=== PATIENT | female | born 1965 | race Caucasian/White ===

== ENCOUNTER 2016-09-23 12:15 | Inpatient (IN) ==
[2016-09-23] MEDS ORDERED: SALINE LOCK IV FLUID XX ONE (13:21)
[2016-09-23] MEDS ORDERED: ZOFRAN IV PRN (13:21)
--- NOTE | 2016-09-23 14:09 | EKG Report ---
Test Performed on : 09/23/2016 1:51:20 PM Test Reason : CP Blood Pressure : / mmHG Vent. Rate : 076 BPM Atrial Rate : 076 BPM P-R Int : 160 ms QRS Dur : 092 ms QT Int : 372 ms P-R-T Axes : 056 013 024 degrees QTc Int : 418 ms Normal sinus rhythm. Nonspecific ST and T wave abnormality III Normal ECG No previous ECGs available Confirmed by Juanito Rocha DO ([id number]) on 09/25/2016 6:02:58 PM
[2016-09-23] MEDS: LOVENOX SUBQ SCH (15:10)
[2016-09-23] MEDS: SOLU-MEDROL IV SCH ×2 (15:23→21:11)
[2016-09-23] MEDS: ROCEPHIN 1 GM/NS 50 ML IV SCH (15:23)
[2016-09-23 15:35] LABS: URINE CULTURE NEEDED? NO; URINE MICRO REVIEW NEEDED? NO; URINE SOURCE CLEAN CATCH
[2016-09-23 15:39] LABS: BILIRUBIN URINE NEGATIVE (NEGATIVE); BLOOD URINE NEGATIVE (NEGATIVE); COLOR YELLOW; GLUCOSE URINE NEGATIVE (NEGATIVE); LEUKOCYTES URINE NEGATIVE (NEGATIVE); NITRITE URINE NEGATIVE (NEGATIVE); PROTEIN URINE NEGATIVE (NEGATIVE); SP GRAVITY URINE 1.008; TURBIDITY URINE CLEAR (CLEAR); UROBILINOGEN URINE NORMAL (NORMAL)
[2016-09-23] MEDS: DUONEB (A & A) INH SCH ×3 (15:40→23:40)
[2016-09-23 15:41] LABS: UR EPITHELIAL CELLS <10 /HPF (<10); URINE BACTERIA NEGATIVE /HPF; URINE RBC <10 /HPF (<10); URINE WBC <10 /HPF (<10)
[2016-09-23] MEDS: ZITHROMAX 500 MG/NS 250 ML IV SCH (16:34)
[2016-09-23 16:53] LABS: MANUAL DIFF NEEDED? NO
[2016-09-23 17:03] LABS: ALLEN TEST YES; BE -3.1 mmoll (-3.0-3.0); BLOOD TYPE ARTERIAL; DRAW SITE L RADIAL; METHB 1.3 % (0.0-1.5); O2(CT) 19.3 mL/dL (15.0-23.0); PCO2(98.6) 35 mmHg (35-45); PO2(98.6) 77 mmHg (60-100); SAMPLE BLOOD; THB 14.6 g/dL (11.5-17.4); pH(98.6) 7.39 (7.35-7.45)
[2016-09-23] MEDS: ROBITUSSIN-DM PO SCH ×2 (17:13→21:12)
[2016-09-23 17:19] LABS: BASO% 0.5 % (0.0-0.8); EOS# 0.05 X1000 (0.0-0.7); EOS% 0.5 % (0.0-10.0); HEMATOCRIT 43.7 % (37.0-47.0); HEMOGLOBIN 14.3 g/dL (12.0-16.0); IMM GRAN# 0.18 X1000 (0.0-0.04); IMM GRAN% 1.8 % (0.0-0.5); LYMPH% 22.2 % (20.5-51.1); MCHC 32.7 g/dL (33-37); MCV 94.6 FL (81-99); MONO# 0.33 X1000 (0.11-0.59); MONO% 3.3 % (1.7-9.3); MPV 11.8 FL (7.4-10.4); NEUT% 71.7 % (42.2-75.2); PLT 294 X1000 (130-400); RBC 4.62 XMIL (4.2-5.4)
[2016-09-23 17:20] LABS: AGAP 16; ALBUMIN 4.5 g/dL (3.5-5.0); ALKALINE PHOSPHATASE 72 U/L (32-104); BUN 16 mg/dL (8-22); CALCIUM 9.4 mg/dL (8.8-10.2); CHLORIDE 95 mmol/L (98-107); COSMO 272; GOT 18 U/L (10-30); GPT 30 U/L (10-36); POTASSIUM 4.7 mmol/L (3.5-5.1); SODIUM 135 mmol/L (136-145); TCO2 24 mmol/L (25-35); TOTAL BILIRUBIN 0.22 mg/dL (0.20-1.00); TOTAL PROTEIN 7.2 g/dL (6.3-8.3)
[2016-09-23] MEDS: NORCO-7.5 PO PRN (23:55)
[2016-09-24] MEDS: DUONEB (A & A) INH SCH ×5 (03:24→19:27)
[2016-09-24] MEDS: ROBITUSSIN-DM PO SCH ×5 (03:37→21:24)
[2016-09-24] MEDS: SOLU-MEDROL IV SCH ×3 (05:30→21:24)
[2016-09-24] MEDS: PROTONIX PO SCH (06:23)
[2016-09-24] MEDS: LEXAPRO PO SCH (08:35)
[2016-09-24] MEDS: MOBIC PO SCH (08:36)
[2016-09-24] MEDS ORDERED: AMLODIPINE PO SCH (09:00)
[2016-09-24] MEDS ORDERED: VALSARTAN PO SCH (09:00)
--- NOTE | 2016-09-24 09:14 | PROGRESS NOTE ---
DATE: 09/24/2016 SUBJECTIVE: Patient still has a deep nonproductive cough, slight improvement. She did not sleep well overnight. OBJECTIVE: Vital Signs: Afebrile, pulse 91, respirations 18, blood pressure 146/76. CV: Tachycardia, regular rhythm. Lungs: Coarse breath sounds with mild expiratory wheezes bilaterally. Extremities: No calf tenderness, cords, or edema. Labs: Chest x-ray was not done last evening. We will repeat the order. Somehow, it was not carried over in the computer. White count 9.8, hemoglobin 14.3, platelets 294,000. D-dimer 0.19. ABG is normal on room air. CMP unremarkable. Cardiac enzymes, total CK, and troponin are all normal. Urinalysis negative. ASSESSMENT: 1. Acute bronchitis. 2. exacerbation. 3. Hypertension. PLAN: Continue to follow blood cultures. Continue IV antibiotics in the form of Rocephin and Zithromax. Continue IV steroids. Continue Kristie Leonard to help with pulmonary toilet. GI prophylaxis with Protonix and DVT prophylaxis with Lovenox. We will check chest x-ray as stated and follow the patient clinically. Resume Symbicort. Resume Exforge, she is on at home for the blood pressure.
--- NOTE | 2016-09-24 09:29 | Diag Imaging Result Document ---
PROCEDURE NAME: CHEST-2 VIEWS - 09/24/2016 TWO VIEWS OF THE CHEST: FINDINGS: There is some atelectasis or fibrosis in the lingula. Otherwise, the lungs are clear and the heart and pulmonary vascularity are within normal limits. IMPRESSION: Minimal lingular atelectasis.
[2016-09-24] MEDS: DIOVAN PO SCH (09:52)
[2016-09-24] MEDS: NORVASC PO SCH (09:52)
[2016-09-24] MEDS: NORCO-7.5 PO PRN ×2 (09:53→21:29)
[2016-09-24] MEDS: ROCEPHIN 1 GM/NS 50 ML IV SCH (14:15)
[2016-09-24] MEDS: LOVENOX SUBQ SCH (14:15)
--- NOTE | 2016-09-24 14:40 | HISTORY AND PHYSICAL ---
CHIEF COMPLAINT: Cough severe with chest congestion and pain in her left chest area. HISTORY OF PRESENT ILLNESS: The patient is a 51-year-old, white female, followed in my medical practice who presents with about a 5-week history of prominent coughing nonproductive. She had taken outpatient treatment with Omnicef and albuterol MDI and Cheratussin AC cough medication and then came back in the office about a week ago and was re-treated then with Augmentin, prednisone taper and albuterol. The patient has failed to show significant improvement. Comes in complaining of persistent severe deep dry cough barking in nature, chest congestion, some pain prominent in the left chest area with nausea and no vomiting. MEDICATIONS: Prior to admission Mobic 15 mg p.o. daily, Vina 7.5 mg q.6 hours p.r.n. pain, Symbicort 160 two puffs b.i.d., albuterol MDI 2 puffs q.4 hours, CAC cough med p.r.n., Augmentin 875 mg b.i.d., Exforge 5/320, 1 p.o. daily. ALLERGIES: Levaquin. PAST MEDICAL HISTORY: 1. Hypertension. 2. RAD. 3. OA. 4. History of hypersomnolence. PAST SURGICAL HISTORY: 1. Hysterectomy July 2000. 2. RSO secondary to a cyst on her ovary 2003. 3. Breast reduction in 1997. 4. C-spine surgery 2011. 5. Left knee arthroscopy December 2014. FAMILY HISTORY: Notable for hypertension in her father. Great aunt with stomach cancer. Stroke in her great grandfather. Alcoholism in her father. No diabetes or MIs in the family. SOCIAL HISTORY: The patient lives in [place]. She is , has 1 child. Works at a day [employer]. Has never been a smoker. Does not drink alcohol. REVIEW OF SYSTEMS: Negative except as above. PHYSICAL EXAMINATION: VITAL SIGNS: Blood pressure 158/90, pulse 68, temperature 98.4 degrees. Mildly obese white female, with increased work of breathing and prominent deep barking dry cough very prominent. SKIN: No rashes. HEENT: NC/AT, ALONZO, EOMI. Sclerae clear. TMs normal. OP mild redness. No exudate. Tongue in the midline. NECK: No LA, TMG, JVD, bruits. CV: RRR without murmur. LUNGS: Coarse breath sounds bilaterally with mild expiratory wheezes bilaterally. Ill-appearing. BACK: Nontender. ABDOMEN: Soft, nontender, no masses or organomegaly. BREASTS/PELVIC/RECTAL: Deferred. EXTREMITIES: No calf tenderness, cords or edema. Peripheral pulses 2+ over 4 bilaterally. NEUROLOGIC: Cranial nerves 2-12 are intact. ASSESSMENT: 1. Reactive airway disease exacerbation. 2. Bronchitis. 3. Hypertension. 4. OA. 5. Chest pain, atypical. PLAN: At this time patient desires admission to the hospital. She is adamant. We will admit, check blood cultures x2, CBC, CMP, cardiac enzymes, troponin. Check EKG. Check D-dimer. Check chest x-ray. Start antibiotics in the form of Zithromax and Rocephin due to her allergy to Levaquin. Start her on IV Solu-Medrol. Give her DuoNeb regularly for nebulizer. Jahitusyung DM for pulmonary toilet. Prophylaxis for DVT with Lovenox. Continue her Exforge for her blood pressure and will follow the patient closely in the hospital. We will also check ABG.
[2016-09-24] MEDS: ZITHROMAX 500 MG/NS 250 ML IV SCH (15:35)
[2016-09-24] MEDS: SYMBICORT 160/4.5 MICROGM INHALER INH SCH (19:30)
[2016-09-25] MEDS: ROBITUSSIN-DM PO SCH ×6 (00:25→20:56)
[2016-09-25] MEDS: DUONEB (A & A) INH SCH ×7 (03:36→23:18)
[2016-09-25] MEDS: PROTONIX PO SCH (06:16)
[2016-09-25] MEDS: SOLU-MEDROL IV SCH ×3 (06:16→20:56)
[2016-09-25] MEDS: SYMBICORT 160/4.5 MICROGM INHALER INH SCH ×2 (07:51→19:30)
--- NOTE | 2016-09-25 08:55 | PROGRESS NOTE ---
DATE: 09/25/2016 SUBJECTIVE: Patient is sitting up in bed. She still has a very prominent deep raspy, dry cough, which is exasperating, seems to be improving very slightly. OBJECTIVE: Vital Signs: Temperature 98 degrees. Pulse 74. Respirations 18. Blood pressure 152/83. O2 saturation on room air 96-98%, up to 100% at one point. CV: RRR without murmur. Lungs: Still prominently coarse breath sounds, cannot rule out rare wheeze. Improving air movement overall but still some prolongation of forced expiration. Extremities: No calf tenderness, cords, or edema. LABORATORY AND X-RAY DATA: Chest x-ray revealed prominent lingular atelectasis. Otherwise, lab data unremarkable. Urine culture no growth. Blood cultures negative thus far. ASSESSMENT: 1. Acute bronchitis. 2. Reactive airway disease exacerbation. 3. Hypertension. PLAN: Continue IV steroids, IV antibiotics in the form of Rocephin and Zithromax. Continue DuoNeb's q.4 hours, Robitussin DM. GI and DVT prophylaxis will be continued. Continue Symbicort. Continue Exforge. Will try to increase her ambulation. Have the hope of sending her home tomorrow on oral prednisone if she continues to show slow, gradual improvement. Incentive spirometry is in progress frequently.
[2016-09-25] MEDS: DIOVAN PO SCH (09:52)
[2016-09-25] MEDS: NORVASC PO SCH (09:53)
[2016-09-25] MEDS: MOBIC PO SCH (09:53)
[2016-09-25] MEDS: LEXAPRO PO SCH (09:53)
[2016-09-25] MEDS: NORCO-7.5 PO PRN ×2 (15:44→21:07)
[2016-09-25] MEDS: ROCEPHIN 1 GM/NS 50 ML IV SCH (15:45)
[2016-09-25] MEDS: ZITHROMAX 500 MG/NS 250 ML IV SCH (15:45)
[2016-09-25] MEDS: LOVENOX SUBQ SCH (15:46)
[2016-09-26] MEDS: ROBITUSSIN-DM PO SCH ×4 (01:45→08:40)
[2016-09-26] MEDS: DUONEB (A & A) INH SCH ×2 (03:25→07:58)
[2016-09-26] MEDS: SOLU-MEDROL IV SCH (06:28)
[2016-09-26] MEDS: PROTONIX PO SCH (06:33)
[2016-09-26 07:47] VITALS: BP 158/73
[2016-09-26] MEDS: SYMBICORT 160/4.5 MICROGM INHALER INH SCH (07:58)
[2016-09-26] MEDS ORDERED: PREDNISONE PO ONE (08:18)
[2016-09-26] MEDS: LEXAPRO PO SCH (08:41)
[2016-09-26] MEDS: DIOVAN PO SCH (08:41)
[2016-09-26] MEDS: NORVASC PO SCH (08:42)
[2016-09-26] MEDS: MOBIC PO SCH (08:42)
[2016-09-26] MEDS ORDERED: OMNICEF PO SCH (09:00)
[2016-09-26] MEDS ORDERED: ZITHROMAX PO SCH (09:00)
--- NOTE | 2016-09-27 06:15 | DISCHARGE SUMMARY ---
ADMISSION DATE: 09/23/2016 DISCHARGE DATE: 09/26/2016 DIAGNOSES: 1. Reactive airways disease exacerbation. 2. Acute bronchitis. 3. Hypertension. 4. Osteoarthritis. 5. Chest pain, noncardiac. PROCEDURES: Chest x-ray revealed a lingular atelectasis. REASON FOR ADMISSION AND HOSPITAL COURSE: The patient is a 51-year-old white female followed in my medical practice who had presented to the office and has now had a 5-week history of prominent deep, dry cough barking in nature, persistent despite outpatient treatment with prednisone taper to Augmentin, albuterol MDI. 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 She remains on her home dose of Exforge during the hospitalization for blood pressure. Chest x-ray revealed a lingular infiltrate. ABG was satisfactory,as was blood work. Blood cultures x 2 were negative. Urine culture was negative. Sputum was not able to be obtained well due to non productivity of the cough. The patient was placed on high-dose IV steroids and given DuoNebs q.4 hours. Robitussin DM was started for pulmonary toilet. The patient did not require supplemental O2. She received IV antibiotics in the form of Rocephin and Zithromax as she was allergic to Levaquin. The patient showed slow gradual improvement but had persistent deep dry cough again that seemed to improve, but she was not well at discharge but had improved to the point she could be discharged home. She was eating well and ambulating without great difficulty. She was afebrile at discharge. Respirations were 16, pulse 74, O2 saturation on room air 99-100%. Lungs showed rare wheeze, good air movement. Cardiovascular: RRR without murmur. Extremities: No calf tenderness cords or edema at discharge. DISCHARGE MEDICATIONS: 1. Omnicef 300 mg p.o. b.i.d. 2. Zithromax 500 mg p.o. daily. 3. DuoNebs with home nebulizer, prescription given 1 per nebulizer q.4 hours. 4. Prednisone taper from 50 mg daily. When she is away from home, we gave her a prescription for Combivent to use 1 puff q.i.d. p.r.n. wheezes. If she is at home she will use the nebulizer with the DuoNeb. 5. She will remain on Symbicort 160 two puffs b.i.d. 6. Continue her Exforge at 5/320 one p.o. daily. 7. Continue Mobic 15 mg daily. 8. Lexapro 5 mg daily. 9. She was prophylaxed with Lovenox during the hospitalization and cardiac enzymes were negative x 3, and D-dimer was normal at 0.19. She will follow up in my office in 1 week.
== END 2016-09-26 10:40 | disposition home or self-care (01) | DRG 202 ==
LOC: DIRADM 12:15 → OBSVTOIN 12:15 → 3N 13:30
PROVIDERS: ADMIT Family Medicine; ATTEND Family Medicine
DX: J20.9 Acute bronchitis, unspecified (principal); J45.901 Unspecified asthma with (acute) exacerbation; I10 Essential (primary) hypertension; R07.89 Other chest pain; M19.90 Unspecified osteoarthritis, unspecified site; Z82.49 Family history of ischemic heart disease and other diseases of the circulatory system; Z82.3 Family history of stroke; Z80.0 Family history of malignant neoplasm of digestive organs; Z79.1 Long term (current) use of non-steroidal anti-inflammatories (NSAID); Z79.51 Long term (current) use of inhaled steroids; Z79.899 Other long term (current) drug therapy
CPT/HCPCS: 71020; 80053; 81001; 82550; 82805; 84484; 85025; 85379; 87040; 87088; 87205; 93005; 93010; 94640; 94761; 94799; J0456; J0696; J1650; J2930; J7512

== ENCOUNTER 2019-06-10 17:29 | Observation (INO) ==
[2019-06-10] MEDS ORDERED: ASPIRIN PO ONE (18:06)
--- NOTE | 2019-06-10 18:30 | EKG Report ---
Test Performed on : 06/10/2019 6:10:11 PM Test Reason : cp Blood Pressure : / mmHG Vent. Rate : 079 BPM Atrial Rate : 079 BPM P-R Int : 162 ms QRS Dur : 086 ms QT Int : 384 ms P-R-T Axes : 066 012 024 degrees QTc Int : 440 ms Normal sinus rhythm. Normal ECG When compared with ECG of 23-SEP-2016 13:51, No significant change was found Unconfirmed Result
[2019-06-10 18:48] LABS: BASO# 0.07 X1000 (0.0-0.2); EOS# 0.16 X1000 (0.0-0.7); EOS% 2.4 % (0.0-10.0); HEMATOCRIT 40.8 % (37.0-47.0); HEMOGLOBIN 13.7 g/dL (12.0-16.0); LYMPH# 3.33 X1000 (1.2-3.4); LYMPH% 49.7 % (20.5-51.1); MCH 31.9 PG (27-31); MCHC 33.6 g/dL (33-37); MCV 95.1 FL (81-99); MONO% 10.4 % (1.7-9.3); MPV 11.4 FL (7.4-10.4); NEUT# 2.44 X1000 (1.4-6.5); NEUT% 36.5 % (42.2-75.2); PLT 237 X1000 (130-400); RBC 4.29 XMIL (4.2-5.4); RDW 12.2 % (11.5-14.5)
[2019-06-10 18:52] LABS: INR 0.9; PROTIME 12.2 Seconds (11.0-16.0)
[2019-06-10 18:53] LABS: PTT 24.2 Seconds (22.3-41.8)
--- NOTE | 2019-06-10 19:08 | Diag Imaging Result Doc PS360 ---
EXAM: CHEST-2 VIEWS INDICATION: cp TECHNIQUE: 3 views COMPARISON: 12/06/2016 FINDINGS: There is trace subsegmental atelectasis at the left lower lung zone. The lungs are clear, otherwise. There is no discrete pleural fluid collection or pneumothorax. The cardiomediastinal silhouette and central vasculature are grossly unremarkable. IMPRESSION: Trace left basilar subsegmental atelectasis. No definite acute pathology, otherwise. Electronically signed by Alan Scott 06/10/2019 7:06 PM
[2019-06-10 19:48] LABS: AGAP 19; BUN 15 mg/dL (8-22); CALCIUM 9.7 mg/dL (8.8-10.2); CHLORIDE 102 mmol/L (98-107); COSMO 284; CREATININE 0.7 mg/dL (0.5-0.9); GLUCOSE 104 mg/dL (70-104); POTASSIUM 4.4 mmol/L (3.5-5.1); SODIUM 142 mmol/L (136-145); TCO2 21 mmol/L (25-35)
[2019-06-10 19:49] LABS: ALB/GLOB RATIO 1.5; ALBUMIN 4.6 g/dL (3.5-5.0); ALKALINE PHOSPHATASE 68 U/L (32-104); CK PROFILE 106 U/L (24-173); GOT 27 U/L (10-30); GPT 26 U/L (10-36); TOTAL BILIRUBIN 0.17 mg/dL (0.20-1.00); TOTAL PROTEIN 7.6 g/dL (6.3-8.3)
--- NOTE | 2019-06-10 20:10 | PROVIDER DOCUMENTATION ---
HPI-General Adult - General Chief Complaint: Chest Pain Stated Complaint: LEFT SIDED CHEST PAIN Time Seen by Provider: 06/10/19 17:57 Source: patient Allergies/Adverse Reactions: Patient Allergies Allergy/AdvReac Type Severity Reaction Status Date / Time levofloxacin [From Levaquin] Allergy DRY MOUTH Verified 06/10/19 20:10 Home Medications: Home Medication List Medication Instructions Recorded Confirmed Last Taken Type Citalopram [Celexa] 20 mg PO DAILY 06/10/19 06/10/19 Unknown History - History of Present Illness -Gen Adult Nature of Presenting Problems: This is a 54yo female who presents with CC of chest pain. She reports intermittent short episodes of chest pain over the last 6 months, however today was a longer and more severe episode. The pain was described as a tightness, that was not worse with movement and was non-radiating. The pain was also accompanied by nausea and and some sweats. Location of Pain/Injury: reports: chest Pain Radiation: reports: no radiation Quality of Pain: reports: tightness Onset/Duration: reports: this afternoon Timing: reports: still present, improving Context/Activities at Onset: reports: none Modifying Factors: worse with: breathing Associated Symptoms: reports: diaphoresis Similar Symptoms Previously?: Yes (intermitent over the last 6 months.) Review of Systems - Adult - REVIEW OF SYSTEMS - ADULT Constitutional: denies: fever Eyes: denies: blurred vision Ears, Nose, Mouth & Throat: reports: no symptoms reported. denies: throat pain Cardiovascular: reports: chest pain Respiratory: reports: shortness of breath Gastrointestinal: reports: no symptoms reported. denies: abdominal pain Genitourinary: reports: no symptoms reported. denies: flank pain Musculoskeletal: reports: no symptoms reported. denies: bone pain Integumentary: reports: no symptoms reported Neurological: reports: no symptoms reported. denies: headache/migraines Psychiatric: reports: no symptoms reported Endocrine: reports: no symptoms reported Hematologic/Lymphatic: reports: no symptoms reported, other (no bleeding) Allergic/Immunologic: reports: no symptoms reported Past History - Adult - PAST MEDICAL HISTORY-ADULT Review of Records: reports: Old Records Reviewed Major Childhood Illnesses: reports: denies history Cardiovascular: reports: HTN Respiratory: reports: bronchitis, pneumonia Gastrointestinal: reports: denies history Obstetrical/Gynecological: reports: denies history Genitourinary: reports: denies history Musculoskeletal: reports: arthritis Neurological: reports: denies history Endocrine/Immune: reports: denies history Other Conditions: reports: denies history - PRIOR SURGERIES/PROCEDURES Surgical/Procedure History: reports: hysterectomy, orthopedic (extremity), breast, back/neck - IMMUNIZATION STATUS Childhood Immunizations: See Nurse Assessment Flu Vaccine: See Nurse Assessment - FAMILY HISTORY Family History: reviewed, not pertinent Physical Exam-General - CONSTITUTIONAL General Appearance: appears well, alert, no apparent distress - EYES Eyes: negative: photophobia, scleral icterus - HEAD, EARS, NOSE, MOUTH & THROAT HENMT: normocephalic/atraumatic, moist mucous membranes - RESPIRATORY Respiratory: lungs clear, normal breath sounds. negative: crackles, wheezing - CARDIOVASCULAR Cardiovascular: regular rate, rhythm. negative: no edema (trace non pitting bilateral lower extremity edema) - GASTROINTESTINAL (ABDOMEN) Abdominal Exam: non tender (very mild RUQ tenderness, no other abdominal tenderness, no rebound, no guarding), soft - SKIN Integumentary: normal color - NEUROLOGIC Neurologic: grossly normal - PSYCHIATRIC Psych/Mental Status: normal mood/affect, normal thought content, normal thought process Progress - PLAN OF CARE/RESULTS Progress/Plan/Lab Results: Vital Signs - 8 hr 06/10/19 18:07 Temperature 98.3 F Pulse Rate 80 Respiratory Rate 18 Blood Pressure 149/85 O2 Sat by Pulse Oximetry 97 Laboratory Results - last 24 hr 06/10/19 06/10/19 06/10/19 18:12 18:12 18:12 WBC 6.70 RBC 4.29 Hgb 13.7 Hct 40.8 MCV 95.1 MCH 31.9 H MCHC 33.6 RDW Std Deviation 12.2 Plt Count 237 MPV 11.4 H Immature Gran % (Auto) 0.0 Neut % (Auto) 36.5 L Lymph % (Auto) 49.7 [place] % (Auto) 10.4 H Eos % (Auto) 2.4 Baso % (Auto) 1.0 H Immature Gran # (Auto) 0.00 Neut # (Auto) 2.44 Lymph # (Auto) 3.33 [place] # (Auto) 0.70 H Eos # (Auto) 0.16 Baso # (Auto) 0.07 PT 12.2 INR 0.90 PTT (Actin FS) 24.2 Sodium 142 Potassium 4.4 Chloride 102 Carbon Dioxide 21 L Anion Gap 19 BUN 15 Creatinine 0.7 BUN/Creatinine Ratio 21 Glucose 104 Calculated Osmolality 284 Calcium 9.7 Total Bilirubin 0.17 L AST 27 ALT 26 Alkaline Phosphatase 68 Creatine Kinase 106 Troponin T Total Protein 7.6 Albumin 4.6 Globulin 3.0 Albumin/Globulin Ratio 1.5 06/10/19 18:12 WBC RBC Hgb Hct MCV MCH MCHC RDW Std Deviation Plt Count MPV Immature Gran % (Auto) Neut % (Auto) Lymph % (Auto) [place] % (Auto) Eos % (Auto) Baso % (Auto) Immature Gran # (Auto) Neut # (Auto) Lymph # (Auto) [place] # (Auto) Eos # (Auto) Baso # (Auto) PT INR PTT (Actin FS) Sodium Potassium Chloride Carbon Dioxide Anion Gap BUN Creatinine BUN/Creatinine Ratio Glucose Calculated Osmolality Calcium Total Bilirubin AST ALT Alkaline Phosphatase Creatine Kinase Troponin T < 0.010 Total Protein Albumin Globulin Albumin/Globulin Ratio Orders Category Date Time Status Nursing- Obtain EKG ONCE Care 06/10/19 18:06 Active CHEST-2 VIEWS [RAD] Stat Exams 06/10/19 18:06 Completed CBC WITH DIFF [HEME] Stat Lab 06/10/19 18:12 Completed CK PROFILE [SP CHEM] Stat Lab 06/10/19 18:12 Completed COMPREHENSIVE METABOLIC PANEL [CHEM] Stat Lab 06/10/19 18:12 Completed PROTIME WITH INR [COAG] Stat Lab 06/10/19 18:12 Completed PTT [COAG] Stat Lab 06/10/19 18:12 Completed TROPONIN T Stat Lab 06/10/19 18:12 Completed Aspirin Med 06/10/19 18:06 Discontinued 325 mg PO NOW ONE EKG [EKG] Stat Ther 06/10/19 18:06 Draft Result Diagrams: 06/10/19 18:12 06/10/19 18:12 - REASSESSMENT Reassessment #1 Status: other (Given risk factors of HTN and family history of heart disease as well as chest pressure with nausea, shortness of breath and sweats will admit for chest pain. Case discussed with hospitalist team who have accepted the patient.) Departure - Departure Date of Disposition Decision: 06/10/19 Time of Disposition Decision: 20:42 DIAGNOSIS: Elevated blood pressure reading Chest pain Qualifiers: Chest pain type: unspecified Qualified Code(s): R07.9 - Chest pain, unspecified Disposition: ADMITTED INPATIENT 09 Certified Medical Emergency: Emergent Condition: Fair Referrals and Follow-Ups: Rodolfo Walker MD [Primary Care Provider] - - Critical Care Note This patient required my direct & personal management of CC.: No Attestation - Physician/ JAQUELINE Attestation Patient care was provided by Advanced Practice Provider:: No The physician spent face to face time with patient:: Yes Advanced Practice Provider documentation review:: Supervising physician onsite and consulted in the evaluation and care of this patient. The physician did have a face to face encounter with the patient. - HEART Score HEART Score: History: Moderately Suspicious HEART Score: ECG: Normal HEART Score: Age: 45-65 Years HEART Score: Risk Factors for Atherosclerotic Disease: 1 or 2 Risk Factors HEART Score: Troponin: < or = Normal Limit Total HEART Score:: 3
[2019-06-10] MEDS ORDERED: NITROGLYCERIN TOP ONE (20:11)
--- NOTE | 2019-06-10 22:28 | HISTORY AND PHYSICAL ---
PRIMARY CARE PHYSICIAN: Dr. Walker. CHIEF COMPLAINT: Chest pain. HISTORY OF PRESENTING ILLNESS: A 54-year-old female with a history of hypertension and depression who presented to emergency department with 1-day history of having chest tightness and shortness of breath. The patient states that she was diaphoretic and somewhat nauseated. She was evaluated in the emergency department and due to her presenting symptoms, it was thought that we will place her for observation for further evaluation and management. At the time of my examination, the patient denied any headache, fever, chills, hemoptysis, melena, weight changes, but complained of chest pain and shortness of breath. PAST MEDICAL HISTORY: Includes depression and hypertension. PAST SURGICAL HISTORY: Hysterectomy, cervical fusion. ALLERGIES: Levaquin. CURRENT MEDICATION: Include citalopram 20 mg p.o. daily. SOCIAL HISTORY: No history of smoking. Admits to social alcohol use. Denies any illicit drug use. FAMILY HISTORY: No history of coronary disease. REVIEW OF SYSTEMS: Fourteen-point review of system as listed in HPI. Other systems negative. PHYSICAL EXAMINATION: GENERAL: Cooperative, friendly female. She is resting comfortably now. VITAL SIGNS: Temperature 98.3 degrees, pulse 80, respiration 18, blood pressure 149/85. HEENT: Atraumatic, normocephalic. Extraocular movements intact. PERRLA. NECK: Supple. CHEST: Clear to auscultation. CARDIOVASCULAR: Regular rate and rhythm. ABDOMEN: Soft. Positive bowel sounds. EXTREMITIES: No edema. NEUROLOGIC: She is awake, alert, oriented x3. : No bladder distention. SKIN: Warm. LABORATORIES AND STUDIES: WBC 6.70, hemoglobin 13.7, hematocrit 40.8, platelets 237,000. Sodium 142, potassium 4.4, chloride 102, CO2 is 21, BUN is 15, creatinine 0.7, glucose is 104. Chest x-ray: No definite acute pathology. ASSESSMENT: A 54-year-old female with a history of hypertension not taking any medications however and depression, who presented to emergency department with 1-day history of having chest pain and shortness of breath. She was evaluated the emergency department. Due to her presenting symptoms, we will place her for observation for further evaluation and management. 1. Chest pain. 2. Hypertension. 3. Depression. PLAN: 1. We will admit the patient to medical floor with telemetry. 2. Continue with cardiac workup. Check EKG, serial cardiac enzymes. Have the patient continue on aspirin. We will use sublingual nitroglycerin p.r.n. chest pain. 3. We will monitor blood pressure closely. 4. We will restart other home medications. 5. Put patient on deep vein thrombosis prophylaxis with sequential compression devices. 6. We will continue to follow and reassess, and make further recommendation based on patient's clinical course. cc: Evens Castro MD
[2019-06-10] MEDS ORDERED: ZOFRAN IV PRN (23:26)
[2019-06-10] MEDS: TYLENOL PO PRN (23:57)
[2019-06-11] MEDS ORDERED: PRILOSEC PO SCH (07:00)
[2019-06-11 07:25] LABS: CHOLESTEROL 263 mg/dL (0-200); HDL 53 mg/dL (45-65); LDL 179 mg/dL; TRIGLYCERIDES 153 mg/dL (35-135); VLDL 31 mg/dL
[2019-06-11] MEDS: TYLENOL PO PRN ×2 (08:14→15:11)
--- NOTE | 2019-06-11 08:55 | PROGRESS NOTE ---
DATE: 06/11/2019 SUBJECTIVE: Patient has had no major complaints through the night. She relates that over the past several months, she has had off and on pain left medial sternal area, sometimes underneath the left breast, sometimes exertional, but primarily at rest. She sometimes has associated shortness of breath and diaphoresis with these episodes. She had not sought medical attention in the office. Does have a history of some depression and anxiety. She is on no medications currently. OBJECTIVE: CV: Without MGR. Lungs: CTA. Neck: No LA. Abdomen: Soft, possible minimal right upper quadrant tenderness. No mass or organomegaly. No rebound or guarding. Extremities: No calf tenderness, cords or edema. Neurologic: Cranial nerves are intact. Nonfocal. LABORATORY DATA: Lab data reviewed shows elevated LDL at 179, total cholesterol 263, triglycerides 153, HDL 53. White count, hemoglobin, and platelets are normal. D-dimer normal. PT/PTT normal. LFTs are normal as is BMP. Cardiac enzymes, troponin levels all normal x3. ASSESSMENT: 1. Atypical chest pain. 2. Possible history of hypertension, not on medications. 3. History of depression and anxiety. PLAN: Will add Crestor 10 mg nightly. Continue aspirin daily and Celexa for depression that she has been on. We will continue that. Will ask Cardiology to see the patient for further workup, possible stress testing. cc: Rodolfo Walker MD
[2019-06-11] MEDS ORDERED: CELEXA PO SCH (09:00)
[2019-06-11] MEDS ORDERED: ASPIRIN PO SCH (09:00)
[2019-06-11] MEDS ORDERED: LEXISCAN ONE (12:30)
--- NOTE | 2019-06-11 13:31 | CONSULTATION ---
DATE OF CONSULTATION: 06/11/2019 IMPRESSION: 1. Recent chest pain with mixed features but overall presentation predominantly atypical for myocardial ischemia. Serial cardiac enzymes normal and ECG benign. Limited coronary risk profile. 2. Hypertension. 3. Depression. RECOMMENDATIONS: Recommend stress myocardial perfusion imaging for further evaluation of chest symptoms. HISTORY: This 54-year-old female with past history of hypertension was admitted yesterday evening for evaluation of chest pain. She relates that late yesterday afternoon while at rest, she started experiencing some left anterior discomfort characterized as a tightness. Discomfort is rather focal. She noted some mild shortness of breath with this as well as some diaphoresis. There was also some nausea. Symptoms lasted approximately 30 minutes. She came to the emergency room for evaluation and was subsequently admitted. She has had a few sporadic episodes of similar nature in the past but never as persistent and generally brief. She can identify no precipitating or relieving factors. 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 She is a nonsmoker. PAST MEDICAL HISTORY: 1. Hypertension. 2. Depression. PAST SURGICAL HISTORY: Hysterectomy and cervical fusion. ALLERGIES: She is allergic or intolerant to levofloxacin. MEDICATIONS PRIOR TO ADMISSION: As listed. SOCIAL HISTORY: She is . 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 She does not smoke or use alcohol. FAMILY HISTORY: Negative for premature coronary disease. REVIEW OF SYSTEMS: Pulmonary: Noncontributory beyond history of present illness. Gastrointestinal: Noncontributory beyond history of present illness. Constitutional: Noncontributory beyond history of present illness. Remainder review of systems negative/noncontributory beyond history of present illness, with 14 total systems reviewed. PHYSICAL EXAMINATION: General: This is a pleasant, overweight middle-aged female in no distress. Vital signs: Blood pressure 131/64, heart rate 71, regular. Weight 190 pounds. HEENT: Extraocular movements appear intact. Mucous membranes are moist. Neck: Supple without jugular venous distention. There are no carotid bruits. Chest: Clear to auscultation. Cardiac: Reveals a regular rate and rhythm without appreciable murmur or gallop. Abdomen: Soft. Bowel sounds are normal. Extremities: Without edema. Neurologic: Reveals her to be alert and fully oriented. Speech is fluent. She moves all 4 extremities equally well. Skin: Warm and dry. Psychiatric: Reveals her mood to be appropriate. DIAGNOSTIC DATA: 12-lead EKG demonstrates normal sinus rhythm and is within normal limits. LABORATORY DATA: White blood cell count 6.7, hematocrit 40.8, hemoglobin 13.7, platelet count 237,000. D-dimer less than 0.27. Sodium 142, potassium 4.4, chloride 102, carbon dioxide 21, BUN 15, creatinine 0.7, glucose 104. Initial troponin T less than 0.01. Followup troponin T of less than 0.01, less than 0.01, and less than 0.01. Initial CPK 81, with followup CPK 62. Triglycerides 153, total cholesterol 263, LDL cholesterol 179, HDL cholesterol 53. cc: MD Rodolfo Agustin MD
[2019-06-11 15:10] VITALS: BP 135/75
--- NOTE | 2019-06-11 15:59 | Diag Imaging Result Document ---
PROCEDURE NAME: MYOCARDIAL PERF SCAN, STR/REST - 06/11/2019 SUMMARY: 1. Lexiscan was infused per standard protocol. 2. There was no chest pain. 3. Stress electrocardiogram was negative for ischemia. 4. Following Lexiscan infusion Cardiolite was injected. 14 millicuries of Cardiolite was injected for the rest phase. 40.4 mCi of Cardiolite was injected for the stress phase. 5. Gated SPECT images were obtained standard views. 6. Images revealed significant chest wall and diaphragmatic attenuation. Normal left ventricular cavity size. Normal myocardial perfusion. 7. Left ventricular ejection fraction by gated SPECT was 71%. CONCLUSIONS: 1. No chest pain. 2. Negative Lexiscan stress electrocardiogram. 3. Normal myocardial perfusion. 4. Left ventricular ejection fraction 71%. cc: MD Nelli Griffiths PA
--- NOTE | 2019-06-11 16:28 | ECHO REPORT ---
ORDER DATE: 06/11/2019 INTERPRETING PHYSICIAN: Ashutosh Lee MD. ECHOCARDIOGRAPHIC MEASUREMENTS: 1. Interventricular septum 1.1. 2. Left ventricular posterior wall 0.8. 3. Diastolic diameter 4.9. 4. Left atrium 3.6. 5. Aorta 3.0. SUMMARY OF THE 2-DIMENSIONAL FINDINGS: 1. Tricuspid valve was normal. 2. Aortic valve leaflets are trileaflet. 3. Pulmonic valve was normal. There is trace pulmonary regurgitation. 4. Mitral valve was normal. There is mild mitral regurgitation. 5. Mild tricuspid regurgitation. Peak velocity across the tricuspid valve was 2.1 m/sec. 6. Pulmonary artery systolic pressure of 27 mmHg. Peak velocity across the aortic valve less than 2 m/sec. By Doppler studies, there is no aortic stenosis or regurgitation. Normal left ventricular cavity size. Estimated ejection fraction of 65%. 7. There is no pericardial effusion, or obvious intracardiac mass or thrombus seen. cc: MD Nelli Griffiths PA Stephen W. Harbin, MD
--- NOTE | 2019-06-11 16:50 | PROGRESS NOTE ---
DATE: 06/11/2019 SUBJECTIVE: Nuclear stress testing came back normal. Discussed with Dr. Lee and he feels like it is appropriate to discharge her home. We will keep her on her Celexa. We will treat her cholesterol with Crestor 10 mg nightly #30, five refills given to the pharmacy at [facility] as that is where she gets her outpatient medications. PLAN: She is to follow up with me in 2 weeks or sooner if she worsens. I encouraged her to keep a record of her blood pressure 3-5 times a week and bring that in at her recheck visit. Encouraged anti-reflux measures. If worsened symptoms, she knows to come back here to the ER. cc: Rodolfo Walker MD
[2019-06-11] MEDS ORDERED: CRESTOR PO SCH (21:00)
== END 2019-06-11 17:56 | disposition home or self-care (01) ==
LOC: ED 17:29 → 4N 22:59 → SUATTDRO 22:59 → INTOOBSV 22:59 → 4N 23:20
PROVIDERS: ADMIT Family Medicine; ATTEND Family Medicine